=== PATIENT | female | born 1940 | race Caucasian/White ===

== ENCOUNTER 2018-05-18 06:00 | Day surgery (SDC) | payer OTHER ==
[~2018-05-18] VITALS: Ht 162.6 cm; Wt 40.4 kg
[~2018-05-18 06:00] MED LIST: ACTONEL5 MG PO; FERROUS SULFAT325 MG PO; FOLIC ACID1 MG PO; PAXIL20 MG PO; PRAVACHOL80 MG PO; TOPROL XL25 MG PO
[2018-05-19] MEDS ORDERED: ULTRACET PO (08:20)
[2018-05-19] MEDS ORDERED: INTESTINEX680 M1 PO (08:20)
== END 2018-05-19 08:19 | disposition home or self-care (01) ==
LOC: CIR.AMB 06:00 → O/R 06:30 → SURG 06:30 → EDSTATUS 10:15 → SURG 10:15 → O/R 10:45 → SURH 10:45 → SURG 18:15 → CIR.AMB 05-19 08:19 → SURH 05-19 11:29
DX: D12.8 Benign neoplasm of rectum (principal); I11.9 Hypertensive heart disease without heart failure; E11.9 Type 2 diabetes mellitus without complications